=== PATIENT | male | born 1950 | race Caucasian/White ===

== ENCOUNTER → 2020-03-27 15:05 | Outpatient (CLI) | payer MEDICARE, OTHER, SELFPAY ==
--- NOTE | 2020-03-27 15:08 | DI.RAD.S_ITS ---
PROCEDURE: XR SHOULDER LT MIN 2V INDICATIONS: Chronic progressive low back pain [place] TECHNIQUE: 3 views of the shoulder were acquired. COMPARISON: None. FINDINGS: Bones: No fractures or dislocations. There is mild acromioclavicular joint degeneration. No suspicious bony lesions. Visualized ribs appear intact. Soft tissues: No suspicious soft tissue calcifications. IMPRESSION: 1. No fracture or subluxation. 2. Mild acromioclavicular joint degeneration. Dictated by: Sina Wall M.D. on 03/27/2020 at 16:06 Approved by: Sina Wall M.D. on 03/27/2020 at 16:07
--- NOTE | 2020-03-27 15:08 | DI.RAD.S_ITS ---
PROCEDURE: XR LUMBAR SPINE MIN 4V INDICATIONS: Chronic progressive low back pain [place] TECHNIQUE: 5 views of the lumbar spine were acquired. COMPARISON: [facility], , XR LUMBAR SPINE 2 OR 3VW, 04/01/2017, 8:44. FINDINGS: Bones: 5 nonrib-bearing vertebrae are present. There is a minimal leftward curvature of the lumbar spine. Minimal retrolisthesis demonstrated at T12-L1, L1-L2, and L2-L3. There is minimal loss of disc height throughout the lumbar spine with mild endplate sclerosis and osteophytosis compatible with mild degenerative disc disease. There is also mild facet arthropathy in the lower lumbar spine. No vertebral body compression fractures. No suspicious bony lesions. Soft tissues: Overlying bowel gas pattern is normal. No suspicious soft tissue calcifications. An aorto bi-iliac endovascular stent graft is noted as well as multiple surgical clips in the lower abdomen. Oblique images: No pars defects. IMPRESSION: 1. Minimal leftward curvature of the lumbar spine and minimal multilevel retrolisthesis as described. 2. Mild multilevel degenerative disc disease and mild facet arthropathy in the lower lumbar spine. Dictated by: Sina Wall M.D. on 03/27/2020 at 16:07 Approved by: Sina Wall M.D. on 03/27/2020 at 16:10
== END ==
PROVIDERS: PCP Nurse Practitioner Family; Referring Provider Physical Medicine & Rehabilitation; Visit Provider Physical Medicine & Rehabilitation
DX: M75.42 Impingement syndrome of left shoulder (principal); M19.012 Primary osteoarthritis, left shoulder; M54.5 Low back pain; M46.96 Unspecified inflammatory spondylopathy, lumbar region; M51.36 Other intervertebral disc degeneration, lumbar region; M47.817 Spondylosis without myelopathy or radiculopathy, lumbosacral region; M47.816 Spondylosis without myelopathy or radiculopathy, lumbar region; G89.29 Other chronic pain
CPT/HCPCS: 72110; 73030; 99213